=== PATIENT | female | born 1960 | race Caucasian/White ===

== ENCOUNTER → 2016-08-03 | Day surgery (SDC) | payer OTHER ==
[2016-07-27 09:49] VITALS: Ht 157.5 cm; Wt 77.3 kg
[~2016-08-03] VITALS: Ht 157.5 cm; Wt 77.3 kg
[~2016-08-03] MED LIST: BUSP-8 PO; EFF75 PO; LIDOCAINE HCL 2% 2 ML VIAL (20MG/ML) ONE; MIDAZOLAM HCL 1 MG/ML 2ML VIAL ONE; PROPOFOL IV EMULSION 10 MG/ML 20 ML VIAL IV ONE; SODIUM CHLORIDE 0.9% 500ML 500 ML IV ONE
--- NOTE | 2016-08-03 13:36 | Endo History and Physical ---
History & Physical Date of Service: Aug 03, 2016. Chief Complaint: screening Referring Physician: Dr. Lyubov Rogers History of Present Illness 56 yo CF who presents for screening colonoscopy. Past Medical History Heart Disease, Syncopal Episodes, Depression Past Surgical History Hx Cardiac Surgery: No Hx Internal Defibrillator: No Hx Pacemaker: Yes (2013) Hx Abdominal Surgery: Yes (UMBILICAL HERNIA, TUBAL LIGATION) Hx of Implantable Prosthesis: No Hx Post-Op Nausea and Vomiting: No Hx Cancer Surgery: No Hx Thoracic Surgery: No Hx Orthopedic: Yes (RT/LEFT CTR) Hx Urinary Tract Surgery: No Family History None Social History Smoking Status: Current Every Day Smoker Hx Substance Use: No Hx Alcohol Use: No Allergies Coded Allergies: No Known Allergies (Verified , 08/03/16) Current Medications Reported Home Medications Medications Dose Route/Sig Max Daily Dose Days Date Category Effexor (Venlafaxine Hcl) 75 Mg Tab 2 Tab PO QAM 07/27/16 Reported Buspirone Hcl 10 Mg Tab 10 Mg PO BID 07/27/16 Reported Vital Signs Weight (Kilograms): 77.27 Height (Feet): 5 Height (Inches): 2 Date Time Temp Pulse Resp B/P Pulse Ox O2 Delivery O2 Flow Rate FiO2 08/03/16 12:59 36.9 76 20 106/62 98 Room Air Physical Exam General Appearance: WD/WN, no apparent distress Respiratory/Chest: Auscultation: breath sounds normal Cardiovascular: Heart Auscultation: RRR Abdomen: Bowel Sounds: normal Inspection & Palpation: soft, non-distended, no tenderness, guarding & rebound Assessment and Plan Assessment: 56 yo CF who presents for screening colonoscopy. Plan: Proceed with colonoscopy.
[2016-08-03 13:39] LABS: BUN/CREATININE RATIO 12.3 (10-20); CALCIUM 9.7 mg/dl (8.5-10.1); CREATININE 0.86 mg/dl (0.60-1.20); POTASSIUM 3.8 mmol/L (3.5-5.1)
[2016-08-03 13:42] LABS: CHOLESTEROL/HDL RATIO 5.9
--- NOTE | 2016-08-03 14:08 | GI REPORT ---
Procedure Date: 08/03/2016 1:14 PM Procedure: Colonoscopy Indications: Screening for colorectal malignant neoplasm Medicines: Monitored Anesthesia Care Complications: No immediate complications. Estimated Blood Loss: Estimated blood loss: none. Procedure: Pre-Anesthesia Assessment: - Prior to the procedure, a History and Physical was performed, and patient medications and allergies were reviewed. The patient's tolerance of previous anesthesia was also reviewed. The risks and benefits of the procedure and the sedation options and risks were discussed with the patient. All questions were answered, and informed consent was obtained. Prior Anticoagulants: The patient has taken no previous anticoagulant or antiplatelet agents. ASA Grade Assessment: III - A patient with severe systemic disease. After reviewing the risks and benefits, the patient was deemed in satisfactory condition to undergo the procedure. After I obtained informed consent, the scope was passed under direct vision. Throughout the procedure, the patient's blood pressure, pulse, and oxygen saturations were monitored continuously. The scope was introduced through the anus and advanced to the terminal ileum. The colonoscopy was performed without difficulty. The patient tolerated the procedure well. The quality of the bowel preparation was good. The terminal ileum, ileocecal valve, appendiceal orifice, and rectum were photographed. Findings: Six sessile polyps were found in the rectum, in the sigmoid colon, in the transverse colon and in the ascending colon. The polyps were 6 to 10 mm in size. These polyps were removed with a hot snare. Resection and retrieval were complete. A 16 mm polyp was found in the sigmoid colon. The polyp was flat. The polyp was removed with a piecemeal technique using a hot snare. Resection and retrieval were complete. Non-bleeding internal hemorrhoids were found during retroflexion. The hemorrhoids were small. Impression: - Six 6 to 10 mm polyps in the rectum, in the sigmoid colon, in the transverse colon and in the ascending colon, removed with a hot snare. Resected and retrieved. - One 16 mm polyp in the sigmoid colon, removed piecemeal using a hot snare. Resected and retrieved. - Non-bleeding internal hemorrhoids. Recommendation: - Resume previous diet. - Continue present medications. - Repeat colonoscopy for surveillance after piecemeal polypectomy and for surveillance based on pathology results. - Return to primary care physician as previously scheduled. Greg Malloy, 08/03/2016 2:08:17 PM This report has been signed electronically. Note Initiated On: 08/03/2016 1:14 PM I attest to the content of the Intraoperative Record and orders documented therein, exceptions below
--- NOTE | 2016-08-03 14:13 | Anesthesiology Progress Note ---
Anesthesia Post Op Note Date & Time Aug 03, 2016 at 14:12 Vital Signs Pain Intensity: 0 Vital Signs Past 12 Hours Date Time Temp Pulse Resp B/P Pulse Ox O2 Delivery O2 Flow Rate FiO2 08/03/16 12:59 36.9 76 20 106/62 98 Room Air Notes Mental Status: alert / awake / arousable, participated in evaluation Pt Amnestic to Procedure: Yes Nausea / Vomiting: adequately controlled Pain: adequately controlled Airway Patency, RR, SpO2: stable & adequate BP & HR: stable & adequate Hydration State: stable & adequate Anesthetic Complications: no major complications apparent
--- NOTE | 2016-08-03 14:15 | Discharge Instructions ---
Endoscopy Patient Instructions Date / Procedure(s) Performed Aug 03, 2016. Colonoscopy Allergy Information Coded Allergies: No Known Allergies (Verified , 08/03/16) Discharge Date / Findings Aug 03, 2016. Colon polyps Internal hemorrhoids Medication Instructions OK to resume all medications today as prescribed. Reported Home Medications Medications Dose Route/Sig Max Daily Dose Days Date Category Effexor (Venlafaxine Hcl) 75 Mg Tab 2 Tab PO QAM 07/27/16 Reported Buspirone Hcl 10 Mg Tab 10 Mg PO BID 07/27/16 Reported Provider Instructions Activity Restrictions - No exercising or heavy lifting for 24 hours. - Do not drink alcohol the day of the procedure. - Do not drive a car or operate machinery until the day after the procedure. - Do not make any important decisions or sign important papers in 24 hours after the procedure. Following Day: - Return to full activity which may include returning to work/school. Diet Start your diet with liquids and light foods (jello, soup, juice, toast). Then eat your usual diet if not nauseated. Treatment For Common After Affects For mild abdominal pain, bloating, or excessive gas: - Rest - Eat lightly - Lie on right side Follow-Up Information Follow-up with Dr. Lyubov Rogers as scheduled Anesthesia Information What You Should Know You have had a procedure that required some medicine to reduce anxiety and discomfort. This treatment is called moderate sedation. After receiving the treatment, you may be sleepy, but you will be able to breathe on your own. The effects of the treatment may last for several hours. Follow these instructions along with Activity/Diet recommendations noted above: * Do NOT do anything where dizziness or clumsiness would be dangerous. * Rest quietly at home today, then you can be up and about tomorrow. * Have a responsible person stay with you the rest of today. * You may have had an I.V. today. If so, you may take the dressing off later today. Recommendations Call your doctor if: * Trouble breathing * Continuous vomiting for more than 24 hours * Temperature above 101 degrees * Severe abdominal pain or bloating * Pain not relieved by pain medicine ordered * There is increased drainage or redness from any incision * A large amount of rectal bleeding greater than 2-3 tablespoons. (If you had a polyp/s removed or have hemorrhoids, a small amount of blood - from the rectum is to be expected.) * You have any unanswered questions or concerns. IN THE EVENT OF A SERIOUS EMERGENCY, GO TO THE NEAREST EMERGENCY ROOM Your discharge instructions were prepared by provider Greg Malloy. Patient Instructions Signature Page Page Patel Patient (or Guardian) Signature/Date: I have read and understand the instructions given to me by my caregivers. Caregiver/RN/Doctor Signature/Date: The above-named patient and/or guardian has received patient instructions on this date. + Original Patient Signature Page (only) stays with chart. Please make copy for patient.
[2016-08-03 14:41] VITALS: BP 112/69; PULSE 63; O2SAT 98
== END | disposition home or self-care (01) ==
LOC: C.GI 11:52
PROVIDERS: ATTEND Internal Medicine
DX: Z12.11 Encounter for screening for malignant neoplasm of colon (principal); D12.2 Benign neoplasm of ascending colon; D12.5 Benign neoplasm of sigmoid colon; K62.1 Rectal polyp; K64.8 Other hemorrhoids; I51.9 Heart disease, unspecified; F32.9 Major depressive disorder, single episode, unspecified; Z98.890 Other specified postprocedural states; Z98.51 Tubal ligation status

== ENCOUNTER → 2016-08-26 | Outpatient (CLI) | payer BC ==
[~2016-08-26] MED LIST changes: -LIDOCAINE HCL 2% 2 ML VIAL (20MG/ML) ONE; -MIDAZOLAM HCL 1 MG/ML 2ML VIAL ONE; -PROPOFOL IV EMULSION 10 MG/ML 20 ML VIAL IV ONE; -SODIUM CHLORIDE 0.9% 500ML 500 ML IV ONE
--- NOTE | 2016-08-26 15:43 | DIAGNOSTIC IMAGING REPORT ---
CERVICAL SPINE 3 VIEWS HISTORY: Spinal stenosis. Pain. Neuropathy. M48.02 Stenosis, cervical spine h/o spinal [id number] COMPARISON: None. FINDINGS: The cervical spine is visualized from C1 through the superior endplate of T1. There is no fracture. Slight grade 1 anterolisthesis of C4 and C5. This is felt to be secondary to degenerative changes of posterior element. Moderate degenerative disc change C5-C6 Prevertebral soft tissues and the atlantodens interval are intact. IMPRESSION: Moderate degenerative change from C4 through C6 as discussed. No acute process. Electronically signed by: Gorge Solano M.D. 08/26/2016 3:41 PM Dictated Date/Time: 08/26/2016 3:39 PM
--- NOTE | 2016-08-26 15:43 | DIAGNOSTIC IMAGING REPORT ---
RIGHT SHOULDER MIN 2 VIEWS ROUTINE CLINICAL HISTORY: Right shoulder pain status post fall. COMPARISON: None. FINDINGS: Alignment of the right shoulder is anatomic. There is no acute fracture. There is mild AC joint arthrosis. IMPRESSION: No acute fracture or dislocation of the right shoulder. Electronically signed by: Agapito Collier M.D. 08/26/2016 3:41 PM Dictated Date/Time: 08/26/2016 3:37 PM
== END | disposition home or self-care (01) ==
LOC: C.RAD1850 15:23
PROVIDERS: ATTEND Family Medicine
DX: M48.02 Spinal stenosis, cervical region (principal); N76.0 Acute vaginitis; M25.511 Pain in right shoulder

== ENCOUNTER 2021-12-13 09:48 | Inpatient (IN) ==
[2021-12-13] MEDS ORDERED: ONDANSETRON INJ 2 MG/ML 2 ML VIAL IV STA (10:32)
[2021-12-13] MEDS ORDERED: SODIUM CHLORIDE 0.9% 1000ML 1,000 ML IV ONE (10:32)
--- NOTE | 2021-12-13 10:35 | Emergency Department Note ---
History of Present Illness General Chief complaint: Vomiting Stated complaint: VOMITING, PASSING OUT, DIZZINESS, O2 LEVEL 90 Time Seen by Provider: 12/13/21 10:23 Source: patient Mode of arrival: ambulatory Limitations: no limitations History of Present Illness Emperatriz is a 61-year-old female comes in after feeling ill since . S he said last thing she was able to actually eat was a hot dog she is a known usual few sick contacts. No fever chills or cough she said her O2 sat was in the high 80s yesterday but is been fine today. She denies feeling short of breath or have any chest pain she has occasional abdominal cramping but mostly is nonpainful she just cannot eat she throws up if she eats afterwards she has had no bowel movement for several days she also has a headache as well. The headache started after all of this. Home Medications Medication Instructions Recorded Confirmed Type simvastatin 40 mg tablet 40 mg PO QPM #90 tabs 09/09/19 09/14/21 Rx fluticasone furoate 100 1 puffs inhalation DAILY 10/22/19 09/14/21 History mcg-vilanterol 25 mcg/dose inhalation powder (Breo Ellipta) albuterol sulfate 90 mcg/actuation 2 puff inhalation .COMPLEX PRN 09/24/20 09/14/21 Rx aerosol inhaler (Ventolin HFA) shortness of breath or wheezing #8 grams hydroxyzine HCl 50 mg tablet 50 mg PO BID PRN anxiety #60 tabs 04/10/21 09/14/21 Rx tizanidine 4 mg tablet 6 mg PO TID PRN muscle spasm #135 05/27/21 09/14/21 Rx tabs prednisone 10 mg tablet 10 mg PO .COMPLEX #30 tabs 09/14/21 09/14/21 Rx ropinirole 2 mg tablet 2 mg PO HS #90 tabs 09/14/21 Rx quetiapine 50 mg tablet (Seroquel) 50 mg PO DAILY #30 tabs 11/10/21 Rx Allergies Allergy/AdvReac Type Severity Reaction Status Date / Time atorvastatin [From Lipitor] Allergy leg pain Verified 09/14/21 14:35 Past Med/Surg History Medical History (Updated 12/13/21 @ 13:44 by Jagdeep Funes MD) Anxiety Colon polyps Controlled substance agreement broken Depression History of sick sinus syndrome Restless leg Right shoulder pain Smokes 1 pack of cigarettes per day Stenosis, cervical spine Surgical History History of tubal ligation S/P cardiac pacemaker procedure Family History Father Heart disease Diabetes Cardiac disorder Myocardial infarction Mother Asthma Heart disease Anxiety Depression Sister Anxiety Denies family history of Colon cancer Ovarian cancer Prostate cancer Breast cancer Colorectal cancer Social History Smoking Status: Current every day smoker Tobacco Type: Cigarettes Age Started Using Tobacco: 17; packs per day: 0.5; Years Smoked: 41; Second Hand Exposure: No; Hx Alcohol Use: No Hx Substance Use: No Preferred Language: Korean Communication Ability: Effective Visual Impairment: No Limitations Hearing Ability: Normal marital status: Single Current Living Situation: Significant Other current occupational status: employed current occupation: INSTRUMENTATION MANAGER Feels Safe at Home: Yes Dental Care, Regularly: No Physical Activity Frequency: Does not Exercise Seatbelt Use: always Sunscreen Use: Yes Review of Systems A total of 10 systems reviewed and were otherwise negative Physical Exam Vital Signs Vital Signs - 24 hr 12/13/21 10:04 12/13/21 11:43 12/13/21 11:41 Temperature 37.1 C Temperature Source Temporal Artery Scan Pulse Rate 75 65 Pulse Rate [Apical] 65 Pulse Rate from SpO2 Sensor 66 Respiratory Rate 18 20 15 Respiratory Effort / Characteristics Non-Labored Non-Labored Respiratory Depth Normal Normal Blood Pressure 97/68 L Blood Pressure [Left Arm] 103/64 Blood Pressure Mean 77 Blood Pressure Mean [Left Arm] 77 Pulse Oximetry 94 98 90 Oxygen Delivery Method Room Air Room Air Sepsis Recent Fever Within 48 Hours No Sepsis New/Unexplained Change in Mental Status No Sepsis Action Taken by Nursing No Action Required 12/13/21 12:00 12/13/21 12:01 12/13/21 12:01 Temperature Temperature Source Pulse Rate 72 71 Pulse Rate [Apical] Pulse Rate from SpO2 Sensor 71 70 Respiratory Rate 18 16 Respiratory Effort / Characteristics Respiratory Depth Blood Pressure 89/57 L Blood Pressure [Left Arm] Blood Pressure Mean 67 Blood Pressure Mean [Left Arm] Pulse Oximetry 95 95 Oxygen Delivery Method Sepsis Recent Fever Within 48 Hours Sepsis New/Unexplained Change in Mental Status Sepsis Action Taken by Nursing General: Well developed well nourished older female who appears in no acute distress, breathing comfortably on room air. Normal speech HEENT: Normal cephalic atraumatic. Pupils are equal round and reactive to light. Extraocular movements are intact. Oropharynx is pink with moist mucous membranes. No swelling of the mouth lips or tongue. Neck: Supple with a midline trachea. No meningeal signs or stiffness, no JVD or bruits. No Stridor. Chest: Clear to auscultation bilaterally. No wheezes or rhonchi. No increased work of breathing. Heart: Regular rate and rhythm without murmurs or gallops. Abdomen: Soft nontender, nondistended without rebound guarding or rigidity. Extremities: No cyanosis clubbing or edema. No calf tenderness or assymetry Spine/Back. Non tender to palpation. No CVA tenderness Skin: Good turgor without rashes. Neurologic exam: Cranial nerves two through 12 are intact. Motor and sensation are intact and symmetrical throughout. Course Administered Medications Discontinued Medications Sodium Chloride (Nss 1000ml) 1,000 mls @ 999 mls/hr IV .Q1H1M ONE Stop: 12/13/21 11:32 Last Admin: 12/13/21 11:25 Dose: 999 mls/hr Documented By: HS Sodium Chloride (Nss 1000ml) 500 mls @ 999 mls/hr IV .Q31M ONE Stop: 12/13/21 12:56 Last Admin: 12/13/21 12:28 Dose: 999 mls/hr Documented By: HS Ondansetron HCl (Ondansetron Inj 2 Mg/Ml 2 Ml Vial) 4 mg IV NOW STA Stop: 12/13/21 10:33 Last Admin: 12/13/21 11:25 Dose: 4 mg Documented By: HS Medical Decision Making Differential Diagnosis Dehydration, electrolyte or metabolic abnormality, foodborne illness, colitis, surgical process, cardiac disease, intracranial process Medical Records Attestation: I reviewed the patient's medical records. Home Medications Current Medication List: was personally reviewed by me Laboratory Data Attestation: I reviewed the patient's lab results. Result diagrams: 12/13/21 10:59 12/13/21 10:59 Lab Results 12/13/21 12/13/21 12/13/21 Range/Units 10:59 10:59 11:35 WBC 2.05 L (4.8-10.8) K/ul RBC 5.70 H (3.93-5.22) M/uL Hgb 16.2 H (12.0-16.0) g/dl Hct 46.6 H (34.1-44.9) % MCV 81.8 (80.0-100.0) fL MCH 28.4 (25.0-34.0) pg MCHC 34.8 (32.0-36.0) g/dL RDW Std Deviation 39.2 (36.4-46.3) fL RDW Coeff of Varun 13.3 (11.5-14.5) % Plt Count 42 L (130-400) K/uL MPV 12.8 H (9.4-12.3) fL Immature Gran % (Auto) 1.0 % Neut % (Auto) 51.2 % Lymph % (Auto) 34.6 % Ness % (Auto) 11.7 % Eos % (Auto) 0.0 % Baso % (Auto) 1.5 % Neut # (Auto) 1.05 L (1.4-6.5) K/uL Lymph # (Auto) 0.71 L (1.2-3.4) K/uL Ness # (Auto) 0.24 (0.24-0.82) K/uL Eos # (Auto) 0.00 (0-0.50) K/uL Baso # (Auto) 0.03 (0-0.2) K/uL Immature Gran # (Auto) 0.02 (0.00-0.02) K/uL Toxic Vacuolation 1+ Platelet Estimate Signific. Decreased L (Normal) Sodium 135 L (136-145) mmol/L Potassium 3.2 L (3.5-5.1) mmol/L Chloride 96 L (98-107) mmol/L Carbon Dioxide 33 H (21-32) mmol/L Anion Gap 6 (3-11) BUN 16 (6-23) mg/dl Creatinine 0.75 (0.6-1.2) mg/dl Est Cr Clr Drug Dosing 65.9 ml/min Est GFR ( Amer) 100.4 ml/min Est GFR (Non-Af Amer) 86.6 ml/min BUN/Creatinine Ratio 21.3 H (10-20) Glucose 96 (70-99(Fasting)) mg/dl Calcium 8.6 (8.5-10.1) mg/dl Total Bilirubin 0.7 (0.2-1.0) mg/dl AST 85 H (13-39) U/L ALT 42 (7-52) U/L Alkaline Phosphatase 73 (34-104) U/L Troponin I High Sens 11.3 (0-14) pg/ml Total Protein 6.1 (6.0-8.3) gm/dl Albumin 3.5 (3.4-5.0) gm/dl Globulin 2.6 (2.5-4.0) gm/dl Albumin/Globulin Ratio 1.3 (0.9-2) Lipase 7 L (11-82) U/L Anaplasma Smear Anaplasma Comment Babesia Smear Lyme Disease IgG Ab (Negative) Lyme Disease IgM Ab (Negative) SARS-CoV-2 (PCR) NEGATIVE (Negative) Influenza Type A (PCR) Negative (Neg) Influenza Type B (PCR) Negative (Neg) RSV (RT-PCR) Negative (Neg) 12/13/21 12/13/21 Range/Units 12:18 12:18 WBC (4.8-10.8) K/ul RBC (3.93-5.22) M/uL Hgb (12.0-16.0) g/dl Hct (34.1-44.9) % MCV (80.0-100.0) fL MCH (25.0-34.0) pg MCHC (32.0-36.0) g/dL RDW Std Deviation (36.4-46.3) fL RDW Coeff of Varun (11.5-14.5) % Plt Count (130-400) K/uL MPV (9.4-12.3) fL Immature Gran % (Auto) % Neut % (Auto) % Lymph % (Auto) % Ness % (Auto) % Eos % (Auto) % Baso % (Auto) % Neut # (Auto) (1.4-6.5) K/uL Lymph # (Auto) (1.2-3.4) K/uL Ness # (Auto) (0.24-0.82) K/uL Eos # (Auto) (0-0.50) K/uL Baso # (Auto) (0-0.2) K/uL Immature Gran # (Auto) (0.00-0.02) K/uL Toxic Vacuolation Platelet Estimate (Normal) Sodium (136-145) mmol/L Potassium (3.5-5.1) mmol/L Chloride (98-107) mmol/L Carbon Dioxide (21-32) mmol/L Anion Gap (3-11) BUN (6-23) mg/dl Creatinine (0.6-1.2) mg/dl Est Cr Clr Drug Dosing ml/min Est GFR ( Amer) ml/min Est GFR (Non-Af Amer) ml/min BUN/Creatinine Ratio (10-20) Glucose (70-99(Fasting)) mg/dl Calcium (8.5-10.1) mg/dl Total Bilirubin (0.2-1.0) mg/dl AST (13-39) U/L ALT (7-52) U/L Alkaline Phosphatase (34-104) U/L Troponin I High Sens (0-14) pg/ml Total Protein (6.0-8.3) gm/dl Albumin (3.4-5.0) gm/dl Globulin (2.5-4.0) gm/dl Albumin/Globulin Ratio (0.9-2) Lipase (11-82) U/L Anaplasma Smear See Comment A Anaplasma Comment Pos for Anaplasma Babesia Smear See Comment Lyme Disease IgG Ab Negative (Negative) Lyme Disease IgM Ab Negative (Negative) SARS-CoV-2 (PCR) (Negative) Influenza Type A (PCR) (Neg) Influenza Type B (PCR) (Neg) RSV (RT-PCR) (Neg) Imaging Data Attestation: I personally reviewed and interpreted this imaging study as follows: My Impression: Chest x-rayno acute infiltrate, failure, pneumothorax seen. Pacemaker in place CT of the headcalcifications but no acute hemorrhage seen. No mass-effect Radiologist's Impression: Chest X-Ray 12/13/21 10:32 XR chest 1V portable HISTORY: 61 years-old Female nausea and vomitint acute nausea with vomiting COMPARISON: Chest radiograph 02/15/2021 TECHNIQUE: Portable AP view of the chest FINDINGS: The cardiomediastinal and hilar silhouettes are within normal limits. Left subclavian pacer. No pneumothorax, pleural effusion, airspace consolidation or overt pulmonary edema. The bones of the chest appear grossly intact. IMPRESSION: No acute process. ACT 112: Negative or not required by law. The above report was generated using voice recognition software. It may contain grammatical, syntax or spelling errors. Electronically signed by: Tru Rodriguez M.D. 12/13/2021 11:[address] 12/13/21 11:55 CT OF THE HEAD WITHOUT CONTRAST CLINICAL HISTORY: Headache. COMPARISON STUDY: Head CT March 11, 2014. MRI of the brain March 12, 2014. CT DOSE: 537.48 mGy.cm TECHNIQUE: Helical axial images of the head were obtained without IV contrast. Automated exposure control was utilized for the study. A dose lowering technique was utilized adhering to the principles of ALARA. FINDINGS: No acute intracranial hemorrhage, midline shift or mass effect is present. Bilateral basal ganglia calcification is again noted. Mild white matter hypodensities favor small vessel disease. The ventricular system is unremarkable. The basal cisterns are patent. No extra-axial collections are present. There are no findings to suggest acute dural sinus thrombosis or acute territorial infarct. No significant calvarial abnormalities are present. Visualized portions of the sinuses and mastoid air cells are clear. IMPRESSION: No acute intracranial findings. ACT 112: Negative or not required by law. Electronically signed by: Agapito Collier M.D. 12/13/2021 12:22 PM ECG Data Attestation: I personally reviewed and interpreted this ECG as follows: Indication: + abdominal pain, + vomiting and + weakness Rate (beats per minute): 70 Rhythm: + other (Atrial paced rhythm) ECG Intervals/blocks: + Normal QRS and + Normal QT ECG [place]: + Normal ECG ST segments: + Normal ST segments ECG Findings: + Other (Low voltage) Comparison ECG Date: from (02/15/21) Change: no significant change MDM Narrative This patient comes in as described above. She was placed in room B6. She is here for treatment evaluation of vomiting and dehydration. She looks well on exam she has a normal neurologic exam her abdomen is benign. IV access established was hydrated with a 1 L IV normal saline bolus and 4 Zofran IV blood test EKG and chest x-ray obtained. She was reassessed frequently. She is starting to feel better but still says she does not feel great. She has nothing to suggest sepsis. Her white count did come back low as her platelets are also low at 41,000 these are new findings for her it may be more of a tickborne illness I did add labs for those. I also did a CAT scan of her head and it was negative. She has nothing to suggest meningitis. Her abdomen remains benign. Her blood pressure is on the low side in the 90s but she is also thin and likely dehydrated. I have consulted the hospitalist to see her in the ER for further treatment and evaluation and admission/observation. Her anaplasmosis did come back positive and the admitting team is also put her on doxycycline which anaplasmosis likely explains her symptoms particularly low platelets. Continuous cardiac monitoring: Orders placed in EMR for continuous cardiac monitoring. Upon my interpretation the patient was noted to be an atrial paced rhythm at a rate of 70 Impression & Plan Anaplasmosis, Vomiting, Thrombocytopenia, Leukopenia, Lab test negative for COVID-19 virus, Acute dehydration, Headache Discharge Plan Visit Data Chief Complaint: Vomiting Stated Complaint: VOMITING, PASSING OUT, DIZZINESS, O2 LEVEL 90 ED Provider: Jagdeep Funes Discharge Problem: Anaplasmosis, Vomiting, Thrombocytopenia, Leukopenia, Lab test negative for COVID-19 virus, Acute dehydration, Headache
--- NOTE | 2021-12-13 11:01 | XRay Report ---
XR chest 1V portable HISTORY: 61 years-old Female nausea and vomitint acute nausea with vomiting COMPARISON: Chest radiograph 02/15/2021 TECHNIQUE: Portable AP view of the chest FINDINGS: The cardiomediastinal and hilar silhouettes are within normal limits. Left subclavian pacer. No pneum othorax, pleural effusion, airspace consolidation or overt pulmonary edema. The bones of the chest ap pear grossly intact. IMPRESSION: No acute process. ACT 112: Negative or not required by law. The above report was generated using voice recognition software. It may contain grammatical, syntax o r spelling errors. Electronically signed by: Tru Rodriguez M.D. 12/13/2021 11:00 AM
[2021-12-13 11:34] LABS: Albumin Globulin Ratio 1.3 (0.9-2); Albumin Level 3.5 gm/dl (3.4-5.0); BUN Creatinine Ratio 21.3 (10-20); Bilirubin,Total 0.7 mg/dl (0.2-1.0); Calcium 8.6 mg/dl (8.5-10.1); Creatinine Clr Calc Pharmacy 65.9 ml/min; Est GFR (African American) 100.4 ml/min; Est GFR (Non-African American) 86.6 ml/min; Globulin 2.6 gm/dl (2.5-4.0); Potassium 3.2 mmol/L (3.5-5.1); Total Protein 6.1 gm/dl (6.0-8.3)
[2021-12-13 11:36] LABS: Hematocrit (blood only) 46.6 % (34.1-44.9); Hemoglobin 16.2 g/dl (12.0-16.0); Mean Corpuscular Hemoglobin 28.4 pg (25.0-34.0); Mean Corpuscular Hgb Conc 34.8 g/dL (32.0-36.0); Mean Corpuscular Volume 81.8 fL (80.0-100.0); Mean Platelet Volume 12.8 fL (9.4-12.3); Platelet Count 42 K/uL (130-400); RDW Coefficient of Variation 13.3 % (11.5-14.5); RDW Standard Deviation 39.2 fL (36.4-46.3); White Blood Count 2.05 K/ul (4.8-10.8)
[2021-12-13 11:39] LABS: Troponin I High Sensitivity 11.3 pg/ml (0-14)
[2021-12-13 11:58] LABS: Basophils # (auto) 0.03 K/uL (0-0.2); Basophils % (auto) 1.5 %; Immature Granulocytes # (auto) 0.02 K/uL (0.00-0.02); Lymphocytes # (auto) 0.71 K/uL (1.2-3.4); Lymphocytes % (auto) 34.6 %; Monocytes # (auto) 0.24 K/uL (0.24-0.82); Monocytes % (auto) 11.7 %; Neutrophils # (auto) 1.05 K/uL (1.4-6.5); Neutrophils % (auto) 51.2 %; Platelet Estimate Signific. Decreased (Normal); Toxic Vacuolation 1+
--- NOTE | 2021-12-13 12:24 | CT Scan Report ---
CT OF THE HEAD WITHOUT CONTRAST CLINICAL HISTORY: Headache. COMPARISON STUDY: Head CT March 11, 2014. MRI of the brain March 12, 2014. CT DOSE: 537.48 mGy.cm TECHNIQUE: Helical axial images of the head were obtained without IV contrast. Automated exposure con trol was utilized for the study. A dose lowering technique was utilized adhering to the principles o f ALARA. FINDINGS: No acute intracranial hemorrhage, midline shift or mass effect is present. Bilateral basal ganglia calcification is again noted. Mild white matter hypodensities favor small vessel disease. The ventricular system is unremarkable. The basal cisterns are patent. No extra-axial collections are pr esent. There are no findings to suggest acute dural sinus thrombosis or acute territorial infarct. No significant calvarial abnormalities are present. Visualized portions of the sinuses and mastoid air cells are clear. IMPRESSION: No acute intracranial findings. ACT 112: Negative or not required by law. Electronically signed by: Agapito Collier M.D. 12/13/2021 12:22 PM
[2021-12-13] MEDS ORDERED: SODIUM CHLORIDE 0.9% 1000ML 500 ML IV ONE (12:26)
[2021-12-13 12:38] LABS: Influenza A virus by PCR Negative (Neg); Influenza B virus by PCR Negative (Neg); RSV by PCR Negative (Neg); SARS CoV2 RNA(COVID-19) InHosp NEGATIVE (Negative)
[2021-12-13] MEDS ORDERED: LACTATED RINGER'S 1,000 ML IV ONE (13:02)
[2021-12-13 13:11] LABS: Anaplasmosis Smear(Rpt to DOH) Pos for Anaplasma
[2021-12-13] MEDS ORDERED: DOXYCYCLINE HYCLATE 100 MG in DEXTROSE 5% 100 ML IV ONE (13:30)
[2021-12-13] MEDS ORDERED: levoFLOXacin/D5W 500 MG/100 ML BAG IV ONE (13:30)
--- NOTE | 2021-12-13 13:31 | History & Physical Report ---
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 - Doxycyline 100mg IV now and then q12 - follow CBC/platelet count - AST is mildly elevated (2) Vomiting: Plan: Symptoms started following eating hotdog within 1 hour of ingestion - may be related to #1 with DDX food bourne illness - Vomiting with hypovolemia - will obtain blood cultures - empirically start on Levaquin- for salmonella coverage however without diarrhea - also without any fevers or meningismus signs and negative CT abscess so doubt need to cover for listeria - replete volume with another liter of ringers solution- remains with SBP <100 and without urination - then LR 100 ml/hour (3) Hypovolemia: Plan: As above - replete volume (4) Anxiety: Plan: Continue Seroquel (5) Thrombocytopenia: Plan: Secondary to # 1 r/o other sepsis causes as above follow- hold on chemprophylaxis (6) Cardiac pacemaker in situ: Plan: A paced 70s placed for symptomatic bradycardia in 2013- 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 Patient comes to the EMD today for complaints of nausea, vomiting, myalgias, and fatigue. This has been ongoing since morning. Patient works nightshift and ate a hotdog while at work and about 1 hour after that she had onset of nausea with vomiting. This progressed to the above symptoms. She has been unable to keep any food or liquid down since , she originally tried but got tired from throwing up so stopped. She denies any diarrhea, or abdominal pain other than some cramping. She did note a tick on her in early spring, has a dog that does not sleep with them but dog is inside and outside dog. In the EMD the patient was noted to be hypotensive 89/57. She had routine labs drawn and received 1.5 liters of 0.9% Saline. She also complained of a headache and had a CT scan of the head performed. Her routine CBC returned with leukopenia, thrombocytopenia, with toxic vacuole. She then had tick-borne labs sent off which did return positive for Anaplasmosis. The patient otherwise feels well but unable to keep anything down. Will obtain blood cultures to rule out any food-bourne illness contributing as well. Will obtain Lactate, Mag, PO4. Will start the patient on doxycycline for her Anaplasmosis and will add on Levaquin until food bourne illness ruled out. She has no meningismus signs and head CT negative for any abscess formation. Follow. COVID test on admission: NEGATIVE Allergies Allergy/AdvReac Type Severity Reaction Status Date / Time atorvastatin [From Lipitor] Allergy leg pain Verified 09/14/21 14:35 Home Medications Medication Instructions Recorded Confirmed Type simvastatin 40 mg tablet 40 mg PO QPM #90 tabs 09/09/19 12/13/21 Rx fluticasone furoate 100 1 puffs inhalation DAILY 10/22/19 12/13/21 History mcg-vilanterol 25 mcg/dose inhalation powder (Breo Ellipta) albuterol sulfate 90 mcg/actuation 2 puff inhalation .COMPLEX PRN 09/24/20 12/13/21 Rx aerosol inhaler (Ventolin HFA) shortness of breath or wheezing #8 grams hydroxyzine HCl 50 mg tablet 50 mg PO BID PRN anxiety #60 tabs 04/10/21 12/13/21 Rx tizanidine 4 mg tablet 6 mg PO TID PRN muscle spasm #135 05/27/21 09/14/21 Rx tabs ropinirole 2 mg tablet 2 mg PO HS #90 tabs 09/14/21 12/13/21 Rx quetiapine 50 mg tablet (Seroquel) 50 mg PO DAILY #30 tabs 11/10/21 12/13/21 Rx Past Med/Surg History Medical History (Updated 12/13/21 @ 14:16 by SHIRA Mathews) Anxiety Colon polyps Controlled substance agreement broken Depression History of sick sinus syndrome Restless leg Right shoulder pain Smokes 1 pack of cigarettes per day Stenosis, cervical spine Surgical History History of tubal ligation S/P cardiac pacemaker procedure Family History Father Heart disease Diabetes Cardiac disorder Myocardial infarction Mother Asthma Heart disease Anxiety Depression Sister Anxiety Denies family history of Colon cancer Ovarian cancer Prostate cancer Breast cancer Colorectal cancer Social History Smoking Status: Current every day smoker Tobacco Type: Cigarettes Age Started Using Tobacco: 17; packs per day: 0.5; Years Smoked: 41; Second Hand Exposure: No; Hx Alcohol Use: No Hx Substance Use: No Preferred Language: [place] Communication Ability: Effective Visual Impairment: No Limitations Hearing Ability: Normal marital status: Single Current Living Situation: Significant Other current occupational status: employed current occupation: MANAGER ADULT Feels Safe at Home: Yes Dental Care, Regularly: No Physical Activity Frequency: Does not Exercise Seatbelt Use: always Sunscreen Use: Yes Review of Systems Review of Systems: REVIEW OF SYSTEMS: Constitutional: No fever, sweats or chills Eyes: No diplopia, no worsening or blurred vision ENT: normal hearing, no trouble swallowing Respiratory: (+) smoker, cough, No sputum, dyspnea at rest or on exertion Cardiovascular: No chest pain, tightness or palpitations Abdomen: (+) nausea, vomiting, NO pain, diarrhea or constipation Musculoskeletal: (+) myalgias, No joint pain, calf pain, swelling Neurologic: No weakness, numbness/tingling, or balance problems Psychiatric: No anxiety or depression Skin: No rash or itch Physical Exam Physical Exam: PHYSICAL EXAM: General: awake, alert, no apparent distress Head: Normocephalic, atraumatic ENT: PERRL, EOMI, no pharyngeal exudate, mucous membranes moist Neuro: AAO x 3, speech clear and appropriate, strength intact bilaterally 5/5, sensation intact and equal all extremities and dermatomes, no pronator drift, no neck-pain, negative Kernig/Brudzinski, Chest: equal rise and fall of the chest, no accessory muscle use, no heaves or thrills, Clear to auscultation, on room air, Cardiac: Regular rate and rhythm, telemetry reviewed- atrial paced, skin warm dry, cap refill <3 seconds, peripheral pulses +2 no JVD, no murmur, no edema GI: NABS x 4 quadrants, soft, nontender to palpation, no rebound, guarding or tenderness : pending void Extremities: Normal inspection, no peripheral edema or erythema, calfs nontender to palpation Psych: Normal mood and affect Skin: no rash or erythema Results & Data Results & Data ([facility]) Vital Signs (Past 12 Hours) Vital Signs Temp Pulse Pulse Resp BP BP Pulse Ox 12/13/21 12:01 89/57 L 12/13/21 12:01 71 16 95 12/13/21 12:00 72 18 95 12/13/21 11:41 65 15 90 12/13/21 11:43 65 20 103/64 98 12/13/21 10:04 37.1 C 75 18 97/68 L 94 O2 Del Method 12/13/21 12:01 12/13/21 12:01 12/13/21 12:00 12/13/21 11:41 12/13/21 11:43 Room Air 12/13/21 10:04 Room Air Laboratory Results Abnormal lab results 12/13/21 12/13/21 12/13/21 Range/Units 10:59 10:59 12:18 WBC 2.05 L (4.8-10.8) K/ul RBC 5.70 H (3.93-5.22) M/uL Hgb 16.2 H (12.0-16.0) g/dl Hct 46.6 H (34.1-44.9) % Plt Count 42 L (130-400) K/uL MPV 12.8 H (9.4-12.3) fL Neut # (Auto) 1.05 L (1.4-6.5) K/uL Lymph # (Auto) 0.71 L (1.2-3.4) K/uL Platelet Estimate Signific. Decreased L (Normal) Sodium 135 L (136-145) mmol/L Potassium 3.2 L (3.5-5.1) mmol/L Chloride 96 L (98-107) mmol/L Carbon Dioxide 33 H (21-32) mmol/L BUN/Creatinine Ratio 21.3 H (10-20) AST 85 H (13-39) U/L Lipase 7 L (11-82) U/L Anaplasma Smear See Comment A Diagnostic Findings Chest X-Ray 12/13/21 10:32 XR chest 1V portable HISTORY: 61 years-old Female nausea and vomitint acute nausea with vomiting COMPARISON: Chest radiograph 02/15/2021 TECHNIQUE: Portable AP view of the chest FINDINGS: The cardiomediastinal and hilar silhouettes are within normal limits. Left subclavian pacer. No pneumothorax, pleural effusion, airspace consolidation or overt pulmonary edema. The bones of the chest appear grossly intact. IMPRESSION: No acute process. ACT 112: Negative or not required by law. The above report was generated using voice recognition software. It may contain grammatical, syntax or spelling errors. Electronically signed by: Tru Rodriguez M.D. 12/13/2021 11:[address] 12/13/21 11:55 CT OF THE HEAD WITHOUT CONTRAST CLINICAL HISTORY: Headache. COMPARISON STUDY: Head CT March 11, 2014. MRI of the brain March 12, 2014. CT DOSE: 537.48 mGy.cm TECHNIQUE: Helical axial images of the head were obtained without IV contrast. Automated exposure control was utilized for the study. A dose lowering technique was utilized adhering to the principles of ALARA. FINDINGS: No acute intracranial hemorrhage, midline shift or mass effect is present. Bilateral basal ganglia calcification is again noted. Mild white matter hypodensities favor small vessel disease. The ventricular system is unremarkable. The basal cisterns are patent. No extra-axial collections are present. There are no findings to suggest acute dural sinus thrombosis or acute territorial infarct. No significant calvarial abnormalities are present. Visualized portions of the sinuses and mastoid air cells are clear. IMPRESSION: No acute intracranial findings. ACT 112: Negative or not required by law. Electronically signed by: Agapito Collier M.D. 12/13/2021 12:22 PM Medications Administered Discontinued Medications Sodium Chloride (Nss 1000ml) 1,000 mls @ 999 mls/hr IV .Q1H1M ONE Stop: 12/13/21 11:32 Last Admin: 12/13/21 11:25 Dose: 999 mls/hr Documented By: HS Sodium Chloride (Nss 1000ml) 500 mls @ 999 mls/hr IV .Q31M ONE Stop: 12/13/21 12:56 Last Admin: 12/13/21 12:28 Dose: 999 mls/hr Documented By: HS Ondansetron HCl (Ondansetron Inj 2 Mg/Ml 2 Ml Vial) 4 mg IV NOW STA Stop: 12/13/21 10:33 Last Admin: 12/13/21 11:25 Dose: 4 mg Documented By: HS Home Medications simvastatin 40 mg tablet 40 mg PO QPM #90 tabs 09/09/19 [Rx Confirmed 09/14/21] fluticasone furoate 100 mcg-vilanterol 25 mcg/dose inhalation powder (Breo Ellipta) 1 puffs inhalation DAILY 10/22/19 [History Confirmed 09/14/21] albuterol sulfate 90 mcg/actuation aerosol inhaler (Ventolin HFA) 2 puff inhalation .COMPLEX PRN shortness of breath or wheezing #8 grams 09/24/20 [Rx Confirmed 09/14/21] hydroxyzine HCl 50 mg tablet 50 mg PO BID PRN anxiety #60 tabs 04/10/21 [Rx Confirmed 09/14/21] tizanidine 4 mg tablet 6 mg PO TID PRN muscle spasm #135 tabs 05/27/21 [Rx Confirmed 09/14/21] prednisone 10 mg tablet 10 mg PO .COMPLEX #30 tabs 09/14/21 [Rx Confirmed 09/14/21] ropinirole 2 mg tablet 2 mg PO HS #90 tabs 09/14/21 [Rx] quetiapine 50 mg tablet (Seroquel) 50 mg PO DAILY #30 tabs 11/10/21 [Rx] Active Medications Lactated Ringer's (Lr) 1,000 mls @ 999 mls/hr IV .Q1H1M ONE Stop: 12/13/21 14:02 Doxycycline Hyclate 100 mg/ (Dextrose) 110 mls @ 50 mls/hr IV 1330 ONE Stop: 12/13/21 15:41 Levofloxacin/Dextrose (Levaquin/D5w) 500 mg in 100 mls @ 100 mls/hr IV DAILY CRISTI; Protocol Stop: 12/23/21 08:59 Levofloxacin/Dextrose (Levaquin/D5w) 500 mg in 100 mls @ 100 mls/hr IV ONE ONE Stop: 12/13/21 14:29 ECG Additional Comments: Atrial-paced rhythm Low voltage QRS Abnormal ECG When compared with ECG of 15-FEB-2021 08:41, No significant change was found Code Status & VTE Plan Code Status CODE: FULL VTE: SCDS, chemoprophy on hold with thormbocytopenia VTE Prophylaxis Plan VTE Prophylaxis will be ordered: Yes Supervising Physician Co-Signing Physician Notes Reviewed documentation, chart reviewed and I discussed that he case with nurse practitioner. Agree with note above. Patient presented with significant nausea vomiting. Of note, she was also severely thrombocytopenic which is a new finding based on the labs. Subsequent work-up revealed anaplasmosis. There was concern regarding sepsis as the patient was hypotensive although her pulse was normal and I suspect that this is close to her baseline. Plan will be to admit for IV hydration. Follow-up with a level. Started on IV doxycycline and Levaquin. Continue to monitor improvement, could be changed over to oral treatment once GI tolerance is improved. PG Care Time/CCT Total # of Minutes Spent Total Time Spent with Patient: Total time spent is greater than 50% in coordination of care (as documented) at patient's floor/unit and/or counseling patient: Coding Level of Care Code 21802 Initial Inpt Care Lvl 3 Diagnoses Anaplasmosis A77.49 Vomiting R11.2 Nausea presence: with nausea Vomiting type: unspecified Hypovolemia E86.1 Anxiety F41.9 Thrombocytopenia D69.6 Cardiac pacemaker in situ Z95.0 Hypokalemia E87.6 Hypomagnesemia E83.42 Stenosis, cervical spine M48.02 (1) Vomiting Nausea presence: with nausea Vomiting type: unspecified Qualified Code(s): R11.2 - Nausea with vomiting, unspecified
[2021-12-13 13:42] LABS: Lyme Ab IgG w/WB Rflx Negative (Negative); Lyme Ab IgM w/WB Rflx Negative (Negative)
[2021-12-13 13:50] LABS: C Reactive Protein 14.87 mg/dl (0-0.5); Magnesium 1.7 mg/dl (1.7-2.4); Phosphorus 2.3 mg/dl (2.5-4.9)
[2021-12-13] MEDS: POTASSIUM CHLORIDE / WTR 10 MEQ/100 ML PLCT IV SCH ×2 (15:16→20:21)
[2021-12-13 15:27] LABS: Appearance Urine Clear (Clear); Bacteria Urine Automated Negative (Negative); Bilirubin Urine Negative (Negative); Blood Urine Trace (Negative); Color Urine Dark Yellow; Epithelial Cell Urine Auto >30 /lpf (0-5); Glucose Urine UA Negative (Negative); Ketones Urine 1+ (Negative); Leukocyte Esterase Urine Negative (Negative); Nitrite Urine Negative (Negative); Protein Urine 2+ (Negative); Specific Gravity Urine 1.021 (1.000-1.030); Urobilinogen Urine Positive (Negative); pH Urine 6.5 (4.5-7.5)
[2021-12-13] MEDS ORDERED: ACETAMINOPHEN 325 MG TAB PO PRN (18:46)
[2021-12-13] MEDS ORDERED: ALBUTEROL HFA 8 GM INHALER INH PRN (18:46)
[2021-12-13] MEDS ORDERED: ONDANSETRON INJ 2 MG/ML 2 ML VIAL IV PRN (18:46)
[2021-12-13] MEDS: MAGNESIUM SULFATE / D5W 1 GM/100 ML BAG IV SCH ×3 (20:23→22:46)
[2021-12-13] MEDS: LACTATED RINGER'S 1,000 ML IV SCH (20:23)
[2021-12-13] MEDS: NICOTINE 14 MG/24 HR PATCH TD SCH (20:23)
[2021-12-13] MEDS: rOPINIRole HCL 2 MG TABLET PO SCH (20:24)
[2021-12-13] MEDS: SIMVASTATIN 40 MG TAB PO SCH (20:24)
[2021-12-13] MEDS: POTASSIUM CHLORIDE 20 MEQ/15 ML UDC PO SCH (21:35)
[2021-12-14] MEDS: DOXYCYCLINE HYCLATE 100 MG in DEXTROSE 5% 100 ML IV SCH ×2 (00:32→12:25)
[2021-12-14] MEDS: LACTATED RINGER'S 1,000 ML IV SCH ×2 (06:05→16:53)
[2021-12-14 06:37] LABS: Creatinine Clr Calc Pharmacy 100.7 ml/min; Est GFR (African American) 122.7 ml/min; Est GFR (Non-African American) 105.9 ml/min
[2021-12-14] MEDS: NICOTINE 14 MG/24 HR PATCH TD SCH (08:07)
[2021-12-14] MEDS: FLUTICASONE/VILANTEROL 100/25MCG 14 PUFFS/INHALER INH SCH (08:08)
[2021-12-14] MEDS: QUEtiapine FUMARATE 25 MG TABLET PO SCH (08:08)
[2021-12-14] MEDS: POTASSIUM CHLORIDE 20 MEQ/15 ML UDC PO SCH (08:08)
[2021-12-14] MEDS ORDERED: levoFLOXacin/D5W 500 MG/100 ML BAG IV SCH (09:00)
[2021-12-14 12:31] LABS: Hematocrit (blood only) 42.3 % (34.1-44.9); Hemoglobin 14.4 g/dl (12.0-16.0); Mean Corpuscular Hemoglobin 27.8 pg (25.0-34.0); Mean Corpuscular Volume 81.7 fL (80.0-100.0); RDW Coefficient of Variation 13.2 % (11.5-14.5); RDW Standard Deviation 39.5 fL (36.4-46.3); Red Blood Count 5.18 M/uL (3.93-5.22); White Blood Count 3.59 K/ul (4.8-10.8)
[2021-12-14 12:45] LABS: INR 1.1 (0.9-1.1); Partial Thromboplastin Ratio 1.2; Partial Thromboplastin Time 33.6 Seconds (21.0-31.0); Prothrombin Time 11.9 Seconds (9.0-12.0)
[2021-12-14 12:51] LABS: Albumin Globulin Ratio 1.6 (0.9-2); Albumin Level 3.1 gm/dl (3.4-5.0); BUN Creatinine Ratio 15.8 (10-20); Bilirubin,Total 0.6 mg/dl (0.2-1.0); Calcium 8.2 mg/dl (8.5-10.1); Creatinine Clr Calc Pharmacy 87.7 ml/min; Est GFR (African American) 116.8 ml/min; Est GFR (Non-African American) 100.8 ml/min; Magnesium 1.9 mg/dl (1.7-2.4); Phosphorus 1.3 mg/dl (2.5-4.9); Potassium 3.3 mmol/L (3.5-5.1); Total Protein 5.1 gm/dl (6.0-8.3)
[2021-12-14 12:57] LABS: Mean Platelet Volume 13.7 fL (9.4-12.3); Platelet Count 48 K/uL (130-400)
[2021-12-14] MEDS ORDERED: LACTATED RINGER'S 1,000 ML IV ONE (12:59)
[2021-12-14] MEDS ORDERED: POTASSIUM PHOS 3 MMOL/1 ML INFUSION IV STA (13:00)
[2021-12-14] MEDS ORDERED: POTASSIUM CHLORIDE CRTAB 20 MEQ TABCR PO STA (13:00)
--- NOTE | 2021-12-14 13:02 | Hospitalist Progress Note ---
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 Potassium phosphorus 21 mmol IV Magnesium 1.9 Potassium 3.3. KCl 40 M EQ p.o. now then 20 M EQ p.o. twice daily (3) Vomiting: Plan: No diarrhea to suggest enteritis. Suspect this is secondary to anaplasmosis as above. Appears to be resolved. (4) Hypovolemia: Plan: Continue lactated Ringer's. 1 hour bolus now as lactate mildly elevated at 2.2 with blood pressure 88/56. (5) Anxiety: Plan: Continue Seroquel Ativan 0.5 every 8 hourly as needed (6) Thrombocytopenia: Plan: Secondary to anaplasmosis. Improved to be improving. 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 Wishes to advance to a full meal. No nausea or vomiting. No diarrhea. No abdominal pain. No fevers, chills. Blood pressure currently 88/56 however she denies any lightheadedness or dizziness. No chest pain or shortness of breath. No cough, sinus pain, nasal congestion. Review of Systems Review of Systems: All systems reviewed & are unremarkable except as noted in Subjective Physical Exam Constitutional: WD/WN, vitals as above ENMT: external ear and nose normal, oropharynx normal Respiratory: normal respiratory effort, lungs clear to auscultation Cardiovascular: RRR, no murmur, no edema Gastrointestinal (Abdomen): normal bowel sounds, soft, nontender, no hepatosplenomegaly Psychiatric: A+Ox3, euthymic affect Results & Data Results & Data ([facility]) Vital Signs (Past 12 Hours) Vital Signs Temp Pulse Pulse Resp BP BP Pulse Ox 12/14/21 08:00 64 12/14/21 11:24 87/54 L 12/14/21 10:32 36.5 C 63 18 84/55 L 93 12/14/21 07:01 36.4 C L 65 18 105/69 95 12/14/21 07:19 12/14/21 04:05 36.8 C 68 18 95/60 L 97 O2 Del Method 12/14/21 08:00 12/14/21 11:24 12/14/21 10:32 Room Air 12/14/21 07:01 Room Air 12/14/21 07:19 Room Air 12/14/21 04:05 Room Air PG Care Time/CCT Total # of Minutes Spent Total Time Spent with Patient: Total time spent is greater than 50% in coordination of care (as documented) at patient's floor/unit and/or counseling patient: Coding Level of Care Code 05118 Subseq Hosp Care Lvl 3 Diagnoses Anaplasmosis A77.49 Electrolyte abnormality E87.8 Vomiting R11.2 Nausea presence: with nausea Vomiting type: unspecified Hypovolemia E86.1 Anxiety F41.9 Thrombocytopenia D69.6 Cardiac pacemaker in situ Z95.0 Stenosis, cervical spine M48.02 (1) Vomiting Nausea presence: with nausea Vomiting type: unspecified Qualified Code(s): R11.2 - Nausea with vomiting, unspecified
[2021-12-14] MEDS ORDERED: POTASSIUM PHOSPHATE 21 MMOL in SODIUM CHLORIDE 0.9% 500 ML IV ONE (13:30)
--- NOTE | 2021-12-14 14:05 | Electrocardiogram Report ---
Test Reason : Blood Pressure : / mmHG Vent. Rate : 070 BPM Atrial Rate : 070 BPM P-R Int : 182 ms QRS Dur : 070 ms QT Int : 422 ms P-R-T Axes : 059 033 023 degrees QTc Int : 455 ms Atrial-paced rhythm Low voltage QRS Abnormal ECG When compared with ECG of 15-FEB-2021 08:41, No significant change was found Confirmed by Anthony Fischer ([id number]) on 12/14/2021 2:05:27 PM Referred By: REFERRED SELF Confirmed By:Anthony Fischer
[2021-12-14] MEDS: LORazepam 0.5 MG TAB PO PRN (14:18)
[2021-12-14 14:47] LABS: ALC (manual) 2.23 K/uL (1.2-3.4); ANC (manual) 0.93 K/uL (1.4-6.5); Lymphocytes # (manual) 1.44 K/uL (1.2-3.4); Lymphocytes % (manual) 40 %; Monocytes # (manual) 0.43 K/uL (0.24-0.82); Monocytes % (manual) 12 %; Neutrophils # (manual) 0.93 K/uL (1.4-6.5); Neutrophils % (manual) 26 %; Reactive Lymphocytes # (manual) 0.79 K/uL; Toxic Vacuolation 1+
[2021-12-14 20:14] LABS: A calco-baum cmplx NotReported Not Detected (NotDetected); Bact fragilis Not Reported Not Detected (NotDetected); C auris Not Reported Not Detected (NotDetected); Calbicans Not Reported Not Detected (NotDetected); Candida glabrata Not Reported Not Detected (NotDetected); Candida krusei Not Reported Not Detected (NotDetected); Cneoformans/gatti Not Reported Not Detected (NotDetected); Cparapsilosis Not Reported Not Detected (NotDetected); Ctropicalis Not Reported Not Detected (NotDetected); E cloacae compx Not Reported Not Detected (NotDetected); Efaecalis Not Reported Not Detected (NotDetected); Efaecium Not Reported Not Detected (NotDetected); Enterobacterales Not Reported Not Detected (NotDetected); Escherichia coli Not Reported Not Detected (NotDetected); H influenzae Not Reported Not Detected (NotDetected); K aerogenes Not Reported Not Detected (NotDetected); Koxytoca Not Reported Not Detected (NotDetected); Kpneumoniae grp Not Reported Not Detected (NotDetected); Lmonocyt Not Reported Not Detected (NotDetected); N meningitidis Not Reported Not Detected (NotDetected); P aeruginosa Not Reported Not Detected (NotDetected); Proteus spp Not Reported Not Detected (NotDetected); Salmonella spp Not Reported Not Detected (NotDetected); Smarcescens Not Reported Not Detected (NotDetected); Staph lugdunensis Not Reported Not Detected (NotDetected); Staph spp. Not Reported Not Detected (NotDetected); Staphaureus Not Reported Not Detected (NotDetected); Staphepi Not Reported Not Detected (NotDetected); Stenmaltophilia Not Reported Not Detected (NotDetected); Strep agal(GrpB) Not Reported Not Detected (NotDetected); Strep pneum Not Reported Not Detected (NotDetected); Strep pyog (GrpA) Not Reported Not Detected (NotDetected); Strep spp Not Reported Not Detected (NotDetected)
[2021-12-14] MEDS: SIMVASTATIN 40 MG TAB PO SCH (21:23)
[2021-12-14] MEDS: rOPINIRole HCL 2 MG TABLET PO SCH (21:23)
[2021-12-14] MEDS: POTASSIUM CHLORIDE CRTAB 20 MEQ TABCR PO SCH (21:25)
[2021-12-15] MEDS: DOXYCYCLINE HYCLATE 100 MG in DEXTROSE 5% 100 ML IV SCH (00:37)
[2021-12-15] MEDS: LORazepam 0.5 MG TAB PO PRN ×2 (00:44→09:08)
[2021-12-15 06:56] LABS: Hematocrit (blood only) 39.4 % (34.1-44.9); Hemoglobin 13.4 g/dl (12.0-16.0); Mean Corpuscular Hemoglobin 27.5 pg (25.0-34.0); Mean Corpuscular Volume 80.9 fL (80.0-100.0); RDW Coefficient of Variation 13.6 % (11.5-14.5); RDW Standard Deviation 39.9 fL (36.4-46.3); Red Blood Count 4.87 M/uL (3.93-5.22)
[2021-12-15 07:20] LABS: Albumin Globulin Ratio 1.5 (0.9-2); Albumin Level 2.8 gm/dl (3.4-5.0); Bilirubin,Total 0.5 mg/dl (0.2-1.0); Calcium 7.9 mg/dl (8.5-10.1); Creatinine Clr Calc Pharmacy 102.5 ml/min; Est GFR (African American) 121.9 ml/min; Est GFR (Non-African American) 105.2 ml/min; Globulin 1.9 gm/dl (2.5-4.0); Magnesium 1.6 mg/dl (1.7-2.4); Phosphorus 2.7 mg/dl (2.5-4.9); Potassium 4.1 mmol/L (3.5-5.1); Total Protein 4.7 gm/dl (6.0-8.3)
[2021-12-15] MEDS: LACTATED RINGER'S 1,000 ML IV SCH (07:31)
[2021-12-15 07:51] LABS: Mean Platelet Volume 13.2 fL (9.4-12.3); Platelet Count 63 K/uL (130-400)
[2021-12-15] MEDS: MAGNESIUM SULFATE / D5W 1 GM/100 ML BAG IV SCH ×2 (08:11→10:19)
[2021-12-15] MEDS: NICOTINE 14 MG/24 HR PATCH TD SCH (08:12)
[2021-12-15] MEDS: FLUTICASONE/VILANTEROL 100/25MCG 14 PUFFS/INHALER INH SCH (08:13)
[2021-12-15] MEDS: QUEtiapine FUMARATE 25 MG TABLET PO SCH (08:13)
[2021-12-15] MEDS: POTASSIUM CHLORIDE CRTAB 20 MEQ TABCR PO SCH (08:14)
[2021-12-15 08:15] LABS: Basophils # (auto) 0.06 K/uL (0-0.2); Basophils % (auto) 1.2 %; Eosinophils # (auto) 0.08 K/uL (0-0.50); Eosinophils % (auto) 1.5 %; Immature Granulocytes # (auto) 0.03 K/uL (0.00-0.02); Immature Granulocytes % (auto) 0.6 %; Lymphocytes # (auto) 3.21 K/uL (1.2-3.4); Lymphocytes % (auto) 61.7 %; Monocytes # (auto) 0.57 K/uL (0.24-0.82); Neutrophils # (auto) 1.25 K/uL (1.4-6.5)
[2021-12-15 11:01] LABS: Adenovirus F 40/41 PCR Not Detected (NotDetected); Astrovirus PCR Not Detected (NotDetected); Campylobacter PCR Not Detected (NotDetected); Cryptosporidium PCR Not Detected (NotDetected); Cyclospora cayetanensis PCR Not Detected (NotDetected); Entamoeba histolytica PCR Not Detected (NotDetected); Enteroaggregative E.coli(EAEC) Not Detected (NotDetected); Enteropathogenic E.coli (EPEC) Not Detected (NotDetected); Enterotoxigenic E.coli (ETEC) Not Detected (NotDetected); Giardia lamblia PCR Not Detected (NotDetected); Norovirus GI/GII PCR Not Detected (NotDetected); Plesiomonas shigelloides PCR Not Detected (NotDetected); Rotavirus A PCR Not Detected (NotDetected); Salmonella PCR Not Detected (NotDetected); Sapovirus PCR Not Detected (NotDetected); Shiga-like Toxin E.coli (STEC) Not Detected (NotDetected); Shigella/Enteroinvasive E.coli Not Detected (NotDetected); Vibrio cholerae PCR Not Detected (NotDetected); Vibrio species PCR Not Detected (NotDetected); Yersinia enterocolitica PCR Not Detected (NotDetected)
--- NOTE | 2021-12-15 12:17 | Discharge Summary ---
Date of Service December 15, 2021 Admission HPI Per Admitting Provider 61 YOF with medical history of: Chronic cervicalgia, HLD, insomnia, anxiety, chronic smoker, Pacemaker(bradycardia 2013). Patient comes to the EMD today for complaints of nausea, vomiting, myalgias, and fatigue. This has been ongoing since morning. Patient works nightshift and ate a hotdog while at work and about 1 hour after that she had onset of nausea with vomiting. This progressed to the above symptoms. She has been unable to keep any food or liquid down since , she originally tried but got tired from throwing up so stopped. She denies any diarrhea, or abdominal pain other than some cr amping. She did note a tick on her in early spring, has a dog that does not sleep with them but dog is inside and outside dog. In the EMD the patient was noted to be hypotensive 89/57. She had routine labs drawn and received 1.5 liters of 0.9% Saline. She also complained of a headache and had a CT scan of the head performed. Her routine CBC returned with leukopenia, thrombocytopenia, with toxic vacuole. She then had tick-borne labs sent off which did return positive for Anaplasmosis. The patient otherwise feels well but unable to keep anything down. Will obtain blood cultures to rule out any food-bourne illness contributing as well. Will obtain Lactate, Mag, PO4. Will start the patient on doxycycline for her Anaplasmosis and will add on Levaquin until food bourne illness ruled out. She has no meningismus signs and head CT negative for any abscess formation. Follow. COVID test on admission: NEGATIVE Principal Diagnosis Anaplasmosis Discharge Exam Constitutional WD/WN, vitals as above ENMT external ear and nose normal, oropharynx normal Respiratory normal respiratory effort, lungs clear to auscultation Cardiovascular RRR, no murmur, no edema Gastrointestinal (Abdomen) normal bowel sounds, soft, nontender, no hepatosplenomegaly Psychiatric A+Ox3, euthymic affect Discharge Data Allergies Allergy/AdvReac Type Severity Reaction Status Date / Time atorvastatin [From Lipitor] Allergy leg pain Verified 09/14/21 14:35 Consultations 12/13/21 12:53 ED Decision to Admit Stat Ordered Studies 12/13/21 11:55 CT head/brain wo con Stat IMPRESSION: No acute intracranial findings. Hospital Course (1) Anaplasmosis: Page Patel is a 61 year old female admitted to [facility] from December 13 to 2021 due to nausea, vomiting, muscle aches and fatigue. She was diagnosed with anaplasmosis. This was treated with intravenous doxycycline. Multiple electrolyte abnormalities were corrected including potassium, phosphorus and magnesium. She will continue on a total 10-day course of doxycycline. Initial Lyme antibodies were negative but could consider repeating this in 2 to 4 weeks if having ongoing symptoms. She improved quickly and is tolerating a full diet. Oral supplementation prescribed as below. Consider follow-up potassium testing to see whether this is needed long-term. (2) Electrolyte abnormality: (3) Vomiting: (4) Hypovolemia: (5) Anxiety: (6) Thrombocytopenia: (7) Cardiac pacemaker in situ: (8) Stenosis, cervical spine: Total Time Total Time Spent Total Time Spent (In Minutes): 45 Discharge Plan Discharge Items Patient Disposition: Home - Self-Care Reason For Visit: VOMITTING WEAKNESS-FOOD BOURNE R/O AND ANAPLASMOSI Discharge Diagnosis: Anaplasmosis Activity: Resume your previous activity Non-emergency contact: Primary Care Provider Call non-emergency contact if: you have any medication questions and your symptoms worsen Follow-up/Referrals: Lyubov Rogers MD [Primary Care Provider] - 12/24/21 4:00 pm Diet: Regular Addtl Attending Provider Instructions: You were admitted to [facility] from December 13 to 2021 due to nausea, vomiting, muscle aches and fatigue. You were diagnosed with anaplasmosis. This was treated with doxycycline. Multiple electrolyte abnormalities were corrected. Thrombocytopenia and neutropenia secondary to anaplasmosis, improving on discharge. Recommend continuing doxycycline for total of 10 days. Continue oral potassium (stop whenever your primary care physician recommends, consider retesting), phosphorus (7 days only) and magnesium supplement (30 days) as prescribed. Pending Studies at Discharge: No Stand-Alone Forms: [facility], Sm[facility] Cessation Medications and DC Order Prescriptions: New potassium chloride 20 mEq tablet extended release 20 meq PO DAILY Qty: 30 0RF doxycycline hyclate 100 mg tablet 100 mg PO BID 9 Days Qty: 18 0RF Phospha 250 Neutral 250 mg Tablet 1 tab PO QID 7 Days Qty: 28 0RF magnesium oxide 400 mg magnesium tablet 400 mg PO DAILY Qty: 30 0RF Continued simvastatin 40 mg tablet 40 mg PO QPM Qty: 90 3RF albuterol sulfate [Ventolin HFA] 90 mcg/actuation HFA aerosol inhaler 2 puff INH .COMPLEX PRN (Reason: shortness of breath or wheezing) Qty: 8 5RF Rx Instructions: 2 puffs inhalation Q4-6H PRN; hydroxyzine HCl 50 mg tablet 50 mg PO BID PRN (Reason: anxiety) Qty: 60 5RF tizanidine 4 mg tablet 6 mg PO TID PRN (Reason: muscle spasm) Qty: 135 5RF ropinirole 2 mg tablet 2 mg PO HS Qty: 90 1RF quetiapine [Seroquel] 50 mg tablet 50 mg PO DAILY Qty: 30 3RF Breo Ellipta 100-25 mcg/dose blister with device 1 puffs INH DAILY Discharge Orders: Discharge Order (Routine); Ordered 12/15/21 Ordered By: Ford Salcedo Admission Data Admit Date/Time: 12/13/21 13:24 Attending Provider: Ford Salcedo Admit Provider: Vijay Cole Primary Care Provider: Lyubov Rogers Other Providers: Vijay Cole Coding Level of Care Code D/C DAY MANAGEMENT >30 MINS Diagnoses Anaplasmosis A77.49 Electrolyte abnormality E87.8 Vomiting R11.2 Nausea presence: with nausea Vomiting type: unspecified Hypovolemia E86.1 Anxiety F41.9 Thrombocytopenia D69.6 Cardiac pacemaker in situ Z95.0 Stenosis, cervical spine M48.02
[2021-12-15 12:23] LABS: Cdiff Antigen Positive; Cdiff Toxin A+B Negative Cdiff Toxin (Negative)
[2021-12-15] MEDS ORDERED: POT PHOSPHATE MONOBASIC W/ SOD TAB PO SCH (13:00)
[2021-12-15] MEDS ORDERED: DOXYCYCLINE HYCLATE 100 MG CAP PO SCH (15:00)
[2021-12-16 03:01] LABS: Reactive Lymphocytes % (manual) 21 %
[2021-12-16 16:23] LABS: Babesia microti DNA Not Detected (Not Detected)
== END 2021-12-15 13:57 | disposition home or self-care (01) | DRG 869 ==
LOC: ED 09:48 → SUATTDRO 13:24 → EDINP 13:24 → 2W 18:33